=== PATIENT | male | born 1960 | race African-American/Black ===

== ENCOUNTER 2017-12-01 11:53 | Inpatient (IN) | payer BC, OTHER ==
[~2017-12-01] VITALS: Ht 190.5 cm; Wt 109.3 kg
[2017-12-01] VITALS (8 sets, daily range): BP systolic 136–159; BP diastolic 69–91
[~2017-12-01 11:53] MED LIST: JANUVIA PO; METFORMIN PO
--- NOTE | 2017-12-01 11:53 | NUR ---
Patient is AOx4 but unable to recall the exact names, dosages & frequency of his home medicines at this time.
[2017-12-01] MEDS ORDERED: ONDANSETRON IV *ER 4 MG/2 ML VIAL IV ONE ×2 (13:00→13:45)
[2017-12-01] MEDS ORDERED: IV NS 1000 ML 1,000 ML IV ONE ×2 (13:00→13:30)
[2017-12-01 13:10] LABS: BASOPHILS # (AUTO) 0.1 K/uL (0.0-8.0); BASOPHILS % (AUTO) 0.4 % (0.0-2.0); HEMATOCRIT 52.6 % (36.7-47.1); HEMOGLOBIN 16.9 g/dL (12.5-16.3); LYMPHOCYTES # (AUTO) 0.7 K/uL (20.0-40.0); LYMPHOCYTES % (AUTO) 4.7 % (20.5-51.5); MEAN CORPUSCULAR HEMOGLOBIN 26.7 uug (23.8-33.4); MEAN CORPUSCULAR HGB CONC 32 g/dL (32.5-36.3); MEAN CORPUSCULAR VOLUME 83.1 fL (73.0-96.2); MONOCYTES # (AUTO) 1.9 K/uL (2.0-10.0); MONOCYTES % (AUTO) 12.9 % (0.0-11.0); NEUTROPHILS # (AUTO) 12.2 K/uL (1.8-8.9); PLATELET COUNT (AUTO) 154 K/uL (152-348); RED BLOOD CELL COUNT(AUTO) 6.34 MIL/uL (4.06-5.63); WHITE BLOOD COUNT (AUTO) 14.9 K/uL (3.6-10.2)
[2017-12-01 13:24] LABS: BILIRUBIN,TOTAL 0.7 mg/dL (0.2-1.0); CREATININE 1.6 mg/dL (0.6-1.3); POTASSIUM 5.7 mmol/L (3.5-5.1); TOTAL PROTEIN, SERUM 7.8 g/dL (6.4-8.2)
[2017-12-01] MEDS ORDERED: INSULIN REGULAR, HUMAN 1,000 UNITS/10 ML VIAL IV ONE (13:30)
[2017-12-01] MEDS ORDERED: MORPHINE SULFATE 2 MG/1 ML DISP.SYRIN IV ONE (13:39)
[2017-12-01] MEDS ORDERED: CALCIUM GLUCONATE IV 1 GM in IV DEXTROSE 5% 50 ML IV ONE (13:39)
[2017-12-01] MEDS ORDERED: SODIUM BICARBONATE 4.2 % (NEUT) 5 ML VIAL IV ONE (13:45)
[2017-12-01] MEDS ORDERED: SODIUM POLYSTYRENE SULFONATE 15 G/60 ML LIQUID UDC PO ONE (13:45)
[2017-12-01] MEDS ORDERED: SODIUM BICARBONATE 8.4% 50 MEQ/50 ML DISP.SYRIN IV ONE ×2 (13:58→14:13)
[2017-12-01] MEDS ORDERED: MORPHINE SULFATE 4 MG/1 ML DISP.SYRIN ONE (14:10)
[2017-12-01] MEDS ORDERED: ONDANSETRON 4 MG/2 ML VIAL ONE (14:11)
[2017-12-01] MEDS ORDERED: CALCIUM GLUCONATE 1 GM/10 ML VIAL IV ONE (14:11)
[2017-12-01] MEDS ORDERED: SODIUM POLYSTYRENE SULFONATE 15 G/60 ML LIQUID UDC ONE (14:11)
[2017-12-01] MEDS ORDERED: INSULIN REGULAR, HUMAN 300 UNIT/3 ML VIAL ONE (14:12)
[2017-12-01] MEDS ORDERED: INSULIN REGULAR, HUMAN 100 UNIT in IV NORMAL SALINE 99 ML IV PRN ×4 (14:30→15:15)
[2017-12-01] MEDS ORDERED: MAGNESIUM HYDROXIDE 30 ML LIQUID UDC PO PRN (15:15)
[2017-12-01] MEDS ORDERED: HYDROCODONE/APAP 5-325MG TABLET PO PRN (15:15)
[2017-12-01] MEDS ORDERED: ACETAMINOPHEN 325 MG TABLET PO PRN (15:15)
[2017-12-01] MEDS ORDERED: Z GUARD REMEDY PASTE 57 GM TUBE TOP PRN (15:15)
[2017-12-01] MEDS ORDERED: ONDANSETRON 4 MG/2 ML VIAL IV PRN (15:15)
--- NOTE | 2017-12-01 15:35 | NUR ---
nw=[id number], notified
--- NOTE | 2017-12-01 15:43 | NUR ---
transfered pt to ccu in stable condition.
--- NOTE | 2017-12-01 15:56 | NUR ---
Full telephone SBAR report received by REFINERY OPERATOR COKINGLAUREL Yu.
--- NOTE | 2017-12-01 16:30 | NUR ---
Pt brought into the unit from ER via wheelchair. Pt stable, A&Ox3, and nad noted upon admission.
--- NOTE | 2017-12-01 16:51 | NUR ---
Spoke with Dr. Fernando on the telephone for pt's new admission orders. New orders received and carried out.
[2017-12-01] MEDS: IV 1/2NS 1000 ML 1,000 ML IV PRN ×2 (16:53→23:56)
--- NOTE | 2017-12-01 17:00 | NUR ---
Pt's blood sugar 360. Insulin drip maintained at 5 units/hr per protocol.
[2017-12-01] MEDS: BLOOD SUGAR DIAGNOSTIC 1 EACH STRIP VI SCH ×7 (17:03→23:04)
--- NOTE | 2017-12-01 17:08 | NUR ---
Dr. Fernando here to see pt at the bedside. New orders received and carried out.
--- NOTE | 2017-12-01 17:58 | NUR ---
Pt's blood sugar 310. Insulin drip decreased to 4 units/hr per protocol.
[2017-12-02] VITALS (11 sets, daily range): BP systolic 134–155; BP diastolic 50–98
[2017-12-02] MEDS: BLOOD SUGAR DIAGNOSTIC 1 EACH STRIP VI SCH ×12 (00:01→11:00)
--- NOTE | 2017-12-02 00:01 | NUR ---
PATIENT NONCOMPLIANT, ANGRY AT ALL INTERVENTIONS, MONITORING, IV's, ETC.
[2017-12-02 06:49] LABS: BASOPHILS % (AUTO) 0.4 % (0.0-2.0); EOSINOPHILS % (AUTO) 0.1 % (0.0-7.0); HEMATOCRIT 45.9 % (36.7-47.1); HEMOGLOBIN 15.5 g/dL (12.5-16.3); LYMPHOCYTES # (AUTO) 0.5 K/uL (20.0-40.0); LYMPHOCYTES % (AUTO) 3.8 % (20.5-51.5); MEAN CORPUSCULAR HEMOGLOBIN 26.7 uug (23.8-33.4); MEAN CORPUSCULAR HGB CONC 34 g/dL (32.5-36.3); MEAN CORPUSCULAR VOLUME 78.9 fL (73.0-96.2); MONOCYTES # (AUTO) 0.7 K/uL (2.0-10.0); MONOCYTES % (AUTO) 5.5 % (0.0-11.0); NEUTROPHILS # (AUTO) 11.8 K/uL (1.8-8.9); NEUTROPHILS % (AUTO) 90.2 % (38.5-71.5); PLATELET COUNT (AUTO) 130 K/uL (152-348); RED BLOOD CELL COUNT(AUTO) 5.81 MIL/uL (4.06-5.63); WHITE BLOOD COUNT (AUTO) 13.1 K/uL (3.6-10.2)
[2017-12-02 06:59] LABS: BILIRUBIN,TOTAL 0.6 mg/dL (0.2-1.0); PHOSPHOROUS 2.1 mg/dL (2.5-4.9); POTASSIUM 3.7 mmol/L (3.5-5.1); TOTAL PROTEIN, SERUM 6.6 g/dL (6.4-8.2)
--- NOTE | 2017-12-02 07:32 | NUR ---
Patient resting in bed, in no acute distress. A/Ox4, no complaints of discomfort at this time. BP WNL, NSR on monitor. Room air, SpO2 and RR WNL. Peripheral IV to L AC, intact. SBAR report received from Jono Adame RN. Will continue plan of care.
--- NOTE | 2017-12-02 08:00 | NUR ---
Patient stating that he wants to go home. Teaching provided of risks of leaving AMA and benefits for hospitalization and treatment. Patient is very passive. Will notify
--- NOTE | 2017-12-02 08:15 | NUR ---
Patient non-compliant various medical therapy. IVF turned off at this time per patient request. Non-compliant with NPO status, drinking water.
--- NOTE | 2017-12-02 08:18 | NUR ---
Glucose 218. Per protocol, Insulin drip running at 2 units/hr
--- NOTE | 2017-12-02 08:43 | NUR ---
Patient is verbally aggressive, refusing education at this time
--- NOTE | 2017-12-02 09:00 | NUR ---
Patient is refusing accu-check at this time. Addendum: 12/02/17 at 0956 by BARBRA SALDANA RN Refusing teaching as well. Will try again when next due
--- NOTE | 2017-12-02 09:56 | NUR ---
Patient continues to refuse accu-check at this time. Attempted to re-educate patient regarding diagnosis and importance of glucose checks, however patient is adamant stating, "I do not care." Notified MD of patients refusal and Insulin drip turned off.
--- NOTE | 2017-12-02 10:40 | NUR ---
Dr Fernando at bedside, aware of patient's request to leave. Education being provided by MD regarding risks for AMA and benefits of staying hospitalization with current diagnosis and condition.
--- NOTE | 2017-12-02 10:50 | NUR ---
Assessed patient's understanding of education. Patient states that he understands, but continues to refuse care and wants to leave AMA. AMA form signed.
--- NOTE | 2017-12-02 11:30 | NUR ---
Discharged AMA, paperwork signed. Teaching provided both by MD and myself. Waiting for pick-up in hospital lobby at this time. Patient left unit at 1130.
== END 2017-12-02 11:30 | disposition left against medical advice (07) | DRG 637 ==
LOC: ER 11:53 → CCU 15:57
PROVIDERS: ADMIT Internal Medicine; ATTEND Internal Medicine
DX: E11.10 Type 2 diabetes mellitus with ketoacidosis without coma (principal); N17.0 Acute kidney failure with tubular necrosis; E87.1 Hypo-osmolality and hyponatremia; E78.5 Hyperlipidemia, unspecified; Z91.14 Patient's other noncompliance with medication regimen; I10 Essential (primary) hypertension; E86.9 Volume depletion, unspecified; E87.5 Hyperkalemia
CPT/HCPCS: 36415; 70030-TC; 83605; 83735; 84100; 85025; 93005; A4663; J0610; J1815; J2270; J2405; J3490; J7030; J7060